=== PATIENT | female | born 1965 | race Caucasian/White ===

== ENCOUNTER 2017-06-15 14:41 | Emergency (ER) | payer MEDICARE, OTHER ==
[2017-06-15 14:52] VITALS: PULSE 73; RESP 18; TEMP 98.3
[2017-06-15] MEDS ORDERED: MORPHINE SULFATE 2 MG/ML SYRINGE IM STA (15:04)
--- NOTE | 2017-06-15 15:12 | ED ---
Fall HPI - General Chief Complaint: Fall Stated Complaint: Fell 06/13 hit head Time Seen by Provider: 06/15/17 14:56 Source: patient, RN notes reviewed Mode of arrival: wheelchair Limitations: no limitations - History of Present Illness Initial Comments: This a 51-year-old female presents emergency Department chief complaint fall. Patient states that she was walking in a darkened states that she tripped over a fan causing her fall backwards. Patient states she fell onto a plywood floor. Patient struck her head but had no loss conscious. Patient complains of head and neck pain. She also complains of upper and lower back pain. She states she does have chronic back problems in which she takes Percocet for currently. Patient has evolved complaint cancer retention. Patient states she has no abdominal pain she states is his pain in her back and hip region. She states that she does have some pain with deep inspiration the right side of her chest and states that she is concerned that she's had a prior pneumothorax. Patient states happened Wednesday night and states that she's been trying to do with up with the pains got worse. Patient denies any focal weakness to her upper or lower extremities. - Related Data Home Medications Medication Instructions Recorded Confirmed Baclofen [Lioresal] 10 mg PO TID PRN 06/15/17 06/15/17 Milnacipran HCl [Savella] 50 mg PO DAILY 06/15/17 06/15/17 Pregabalin [Lyrica] 200 mg PO TID 06/15/17 06/15/17 oxyCODONE HCL/ACETAMINOPHEN 1 tab PO TID PRN 06/15/17 06/15/17 [Percocet 10-325 mg] tiZANidine HCL [Zanaflex] 4 mg PO BID PRN 06/15/17 06/15/17 traZODone HCL 200 mg PO HS 06/15/17 06/15/17 Allergies Allergy/AdvReac Type Severity Reaction Status Date / Time tramadol [From Ultram] Allergy Rash/Hives Verified 06/15/17 15:54 hydromorphone [From Dilaudid] AdvReac HEART RATE Verified 06/15/17 15:54 DROPS Review of Systems ROS Statement: Those systems with pertinent positive or pertinent negative responses have been documented in the HPI. ROS Other: All systems not noted in ROS Statement are negative. Past Medical History Past Medical History: Fibromyalgia Additional Past Medical History / Comment(s): DDD, spontaneous pneumothorax History of Any Multi-Drug Resistant Organisms: None Reported Past Surgical History: Back Surgery, Cholecystectomy, Orthopedic Surgery Additional Past Surgical History / Comment(s): breast implants Smoking Status: Current every day smoker Past Alcohol Use History: None Reported Past Drug Use History: Marijuana General Exam Limitations: no limitations General appearance: alert, in no apparent distress Head exam: Present: atraumatic, normocephalic, normal inspection Eye exam: Present: normal appearance, PERRL, EOMI. Absent: scleral icterus, conjunctival injection, periorbital swelling ENT exam: Present: normal exam, normal oropharynx, mucous membranes moist, TM's normal bilaterally, normal external ear exam Neck exam: Present: normal inspection, tenderness, full ROM. Absent: meningismus, lymphadenopathy Respiratory exam: Present: normal lung sounds bilaterally, chest wall tenderness (Right-sided). Absent: respiratory distress, wheezes, rales, rhonchi , stridor Cardiovascular Exam: Present: regular rate, normal rhythm, normal heart sounds. Absent: systolic murmur, diastolic murmur, rubs, gallop, clicks GI/Abdominal exam: Present: soft, normal bowel sounds. Absent: distended, tenderness, guarding, rebound, rigid Extremities exam: Present: normal inspection, full ROM, normal capillary refill. Absent: tenderness, pedal edema, joint swelling, calf tenderness Back exam: Present: full ROM, tenderness (March discomfort lower thoracic and lumbar region), paraspinal tenderness, vertebral tenderness. Absent: normal inspection (scars noted) Neurological exam: Present: alert, oriented X3, CN II-XII intact, reflexes normal. Absent: motor sensory deficit Skin exam: Present: warm, dry, intact, normal color. Absent: rash Course Vital Signs 06/15/17 14:47 Temperature 98.3 F Pulse Rate 73 Respiratory 18 Rate Blood Pressure 153/85 O2 Sat by Pulse 94 L Oximetry Medical Decision Making - Medical Decision Making 51-year-old female presented emergency from for fall on Wednesday. Patient CT, x- rays show no acute abnormality. Patient has chronic pain which is exacerbated by this fall. Patient takes pain medication and muscle relaxer home but denies anything additional to her medications at this time. She is advised to contact her doctor who prescribes her medications. Return parameters were discussed. Disposition Clinical Impression: Fall, Head injury, Back pain, Chest wall contusion Disposition: HOME SELF-CARE Condition: Stable Instructions: Back Pain (ED) Additional Instructions: Please return to the Emergency Department if symptoms worsen or any other concerns. Referrals: Linda Araujo DO [Primary Care Provider] - 1-2 days Time of Disposition: 16:11
[2017-06-15] MEDS ORDERED: MORPHINE SULFATE 10 MG/ML SYRINGE IM STA (15:13)
--- NOTE | 2017-06-15 15:43 | XR ---
EXAMINATION TYPE: XR chest 2V DATE OF EXAM: 06/15/2017 COMPARISON: NONE HISTORY: Cough and chest pain TECHNIQUE: Frontal and lateral views of the chest are obtained. FINDINGS: The midthoracic bodies appear slightly diminutive in comparison to the upper thoracic bodi es however there is no anterior wedge compression deformity present in the finding is likely related to obliquity as there is a levoscoliotic curvature of the mid to lower thoracic spine. Mild generaliz ed osseous demineralization is seen. There is no focal air space opacity, pleural effusion, or pneumo thorax seen. Pulmonary hyperinflation is likely related to degree of inspiration is there is no bereket ening of the diaphragm on the lateral image. The cardiac silhouette size is within normal limits. T he osseous structures are intact. Cholecystectomy clips reside within the right upper quadrant. IMPRESSION: No acute cardiopulmonary process.
--- NOTE | 2017-06-15 15:44 | CT ---
EXAMINATION TYPE: CT brain cspine wo con DATE OF EXAM: 06/15/2017 COMPARISON: NONE HISTORY: Fall on 06-13-[address] DLP: Brain (1029.90) and C-spine (275.50) mGycm Automated exposure control for dose reduction was used. TECHNIQUE: CT scan of the head and cervical spine are performed without contrast. FINDINGS: There is no acute intracranial hemorrhage, mass effect, or midline shift identified. The ventricles and sulci are within normal limits in size. The globes are intact and the visualized sin uses are clear. Hyperdensity in the posterior nasopharynx on the right most likely is related artifac t correlate clinically. Cervical spine is visualized in its entirety from C1 through upper thoracic levels and demonstrates s atisfactory alignment without evidence of acute fracture or dislocation. Prevertebral soft tissue ap pears within normal limits. The C1-C2 articulation is unremarkable. Degenerative disc disease at C4 -5 and C5-C6 with uncovertebral joint hypertrophy. Bilateral foraminal encroachment noted. Canal sten osis not excluded. Emphysematous changes involving the lung apices noted. IMPRESSION: 1. There is no acute fracture or dislocation evident in the cervical spine. Degenerative disc disease with foraminal encroachment C4-5 and C5-C6. Could not exclude canal stenosis correlate with MRI. 2. No acute intracranial hemorrhage, mass effect, or midline shift is seen. 3. Hyperdensity within the posterior nasopharynx on the right most likely artifactual but could be fo llowed up on a short-term basis or with direct visualization.
--- NOTE | 2017-06-15 15:47 | XR ---
EXAMINATION TYPE: XR pelvis AP view, XR lumbar spine 2 or 3V DATE OF EXAM: 06/15/2017 CLINICAL HISTORY: Back pain after a fall TECHNIQUE: A single AP view of the pelvis is obtained. Frontal and lateral radiograph's of the lumbar spine were obtained. COMPARISON: None. FINDINGS: Left pubic bone at the pubic symphysis is asymmetrically cephalad 2 mm in comparison to th e right. There is no pubic symphysis joint space widening or sacroiliac joint asymmetry. No evidence of pelvic fracture is identified. Mild degenerative changes of the femoral acetabular joints are seen . Postsurgical changes of L4-5 and L5-S1 are present with intervertebral disc spacers. No evidence of m alalignment of the lumbar spine or vertebral body height loss. There is a mild dextroscoliotic curvat ure of the upper lumbar spine. Overlying bowel gas is nondilated. Cholecystectomy clips are identifie d. IMPRESSION: 1. Lumbar spine maintains normal height and alignment with postsurgical changes at L4-L5 and L5-S1. 2. Slight elevation of the left pubic bone at the pubic symphysis and relation to the right which cou ld be an incidental finding is there is no pelvic fracture identified and sacroiliac joint spaces are maintained. Correlate for point tenderness.
[2017-06-15] MEDS ORDERED: DIAZEPAM 5 MG/ML 2 ML INJ IM STA (16:18)
[2017-06-15 16:47] VITALS: BP 139/88
== END 2017-06-15 16:51 | disposition home or self-care (01) ==
LOC: EC 14:41
DX: S20.219A Contusion of unspecified front wall of thorax, initial encounter (principal); S09.90XA Unspecified injury of head, initial encounter; M54.2 Cervicalgia; M54.5 Low back pain; G89.29 Other chronic pain; M25.559 Pain in unspecified hip; M79.7 Fibromyalgia; F17.200 Nicotine dependence, unspecified, uncomplicated; Z79.891 Long term (current) use of opiate analgesic; Z79.899 Other long term (current) drug therapy; Z88.5 Allergy status to narcotic agent; Z98.890 Other specified postprocedural states; W18.09XA Striking against other object with subsequent fall, initial encounter; Y93.01 Activity, walking, marching and hiking
CPT/HCPCS: 99284 ×2; 96372 ×3; 71020; 72100; 72170; 72125; 70450; J3360; J2270